=== PATIENT | female | born 1980 | race Caucasian/White ===

== ENCOUNTER 2016-07-13 16:27 | Emergency (ER) | payer MEDICAID ==
[2016-07-13 17:44] LABS: BASOPHILS 0.6 % (0.0-2.0); EOSINOPHILS 0.8 % (0-7); HEMATOCRIT 36.4 % (36.0-48.0); HEMOGLOBIN 12.3 g/dL (12-16); IMMATURE GRANULOCYTES 0.2 % (0-5); LYMPHOCYTES 18.1 % (15-50); MCH 35.2 pg (26.0-34.0); MCHC 33.8 g/dL (31.0-37.0); MCV 104.3 fL (80.0-100.0); MEAN PLATELET VOLUME 10.9 fL (7.4-10.4); MONOCYTES 11.8 % (2-11); NEUTROPHILS 68.5 % (40-80); RBC 3.49 10x6/uL (4.00-5.40); RDW 14.4 % (11.5-14.5)
[2016-07-13 17:46] LABS: PLATELET COUNT 115 10x3/uL (130-400)
[2016-07-13 17:59] LABS: ALBUMIN 4.1 g/dL (3.4-5.0); ALKALINE PHOSPHATASE 82 U/L (46-116); ALT (SGPT) 109 U/L (10-68); BILIRUBIN - TOTAL 1.09 mg/dL (0.2-1.3); CALC OSMOLALITY 267 mosm/kg (275-300); CALCIUM 9.3 mg/dL (8.5-10.1); CARBON DIOXIDE 29.1 mmol/L (21.0-32.0); CHLORIDE - SERUM 97 mmol/L (98-107); CREATININE - SERUM 0.7 mg/dL (0.6-1.3); GLUCOSE 105 mg/dL (74-106); POTASSIUM - SERUM 4.1 mmol/L (3.5-5.1); PROTEIN - SERUM 7.9 g/dL (6.4-8.2); SODIUM 135 mmol/L (136-145); UREA NITROGEN 6 mg/dL (7-18); eGFR NON AFRICAN AMERICAN > 90 mL/min (90-120)
== END 2016-07-13 19:21 | disposition home or self-care (01) ==
LOC: D.ER 16:27
PROVIDERS: Family Medicine
DX: R55 Syncope and collapse (principal); F17.200 Nicotine dependence, unspecified, uncomplicated

== ENCOUNTER 2018-01-05 09:27 | Emergency (ER) | payer MEDICAID ==
[~2018-01-05] VITALS: Ht 160 cm; Wt 77.3 kg
[2018-01-05 09:33] VITALS: BP 117/76; Ht 160 cm; Wt 77.3 kg
[2018-01-05] MEDS ORDERED: NAPROSYN500 MG PO (11:20)
== END 2018-01-05 11:41 | disposition home or self-care (01) ==
LOC: D.ER 09:27
DX: S20.211A Contusion of right front wall of thorax, initial encounter (principal); X58.XXXA Exposure to other specified factors, initial encounter; Y93.89 Activity, other specified; Y92.019 Unspecified place in single-family (private) house as the place of occurrence of the external cause; F17.200 Nicotine dependence, unspecified, uncomplicated

== ENCOUNTER 2018-11-12 15:52 | Emergency (ER) | payer MEDICAID ==
[~2018-11-12 15:52] MED LIST: NAPROSYN500 MG PO
[2018-11-12 15:58] VITALS: Ht 160 cm
[2018-11-12] MEDS ORDERED: ULTRAM50 MG PO (16:43)
[2018-11-12 17:07] VITALS: BP 124/68
== END 2018-11-12 17:08 | disposition home or self-care (01) ==
LOC: D.ER 15:52
DX: S82.832A Other fracture of upper and lower end of left fibula, initial encounter for closed fracture (principal); W06.XXXA Fall from bed, initial encounter; Y93.89 Activity, other specified; Y92.013 Bedroom of single-family (private) house as the place of occurrence of the external cause

== ENCOUNTER 2018-12-04 11:27 | Day surgery (SDC) | payer MEDICAID ==
[~2018-12-04] VITALS: Ht 160 cm; Wt 72.6 kg
[~2018-12-04 11:27] MED LIST changes: +HYDROCODON-ACE1 EA10 PO; +ULTRAM50 MG PO
[2018-12-04 11:54] LABS: HEMATOCRIT 45.2 % (36.0-48.0); HEMOGLOBIN 16.6 g/dL (12-16); MCH 39.6 pg (26.0-34.0); MCHC 36.7 g/dL (31.0-37.0); MCV 107.9 fL (80.0-100.0); MEAN PLATELET VOLUME 10.2 fL (7.4-10.4); RBC 4.19 10x6/uL (4.00-5.40); RDW 13.6 % (11.5-14.5); WBC 9.1 10x3/uL (4.8-10.8)
[2018-12-04 12:27] VITALS: BP 123/104; Ht 160 cm; Wt 72.6 kg
[2018-12-04 12:38] LABS: HCG URINE NEGATIVE (NEGATIVE)
[2018-12-04] MEDS ORDERED: HYDROCODON-ACE1 EA10 PO (16:01)
--- NOTE | 2018-12-12 14:40 | OP ---
PATIENT NAME: LUANNE HANEY MEDICAL RECORD: [id number] :76 LOCATION:[facility] ADMISSION DATE: SURGEON: ISA LINDSEY MD DATE OF OPERATION: 12/04/2018 PREOPERATIVE DIAGNOSIS: Left fibula fracture. POSTOPERATIVE DIAGNOSIS: Left fibula fracture. PROCEDURE: Open reduction internal fixation of left fibula fracture. SURGEON: Isa Lindsey MD CAREER SERVICES MANAGER: CLEVELAND Dalton INTRAOPERATIVE COMPLICATIONS: None. SUMMARY OF PATHOLOGIC FINDINGS: The patient had a very easily reducible fibular fracture that did have interposed fracture hematoma as well as scar tissue that required takedown; however, after reduction, it was nicely fixed under fluoroscopy. OPERATIVE SUMMARY IN DETAIL: After obtaining the appropriate preoperative orthopedic surgery consent as well as anesthetic consultation, evaluation and clearance, the patient was brought to the operating room and placed on the operating table in supine position. After adequate general laryngeal mask airway was administered, tourniquet was placed about the proximal aspect of the left lower extremity. Left lower extremity was then prepped and draped in routine sterile fashion. At this point, appropriate timeout was taken including patient identifiers, appropriate operative site as well as medications and allergies. This was agreed upon by all in the operative suite. Having completed this, the leg was elevated and exsanguinated, tourniquet was inflated to 350 mmHg. Under fluoroscopic guidance, incision was made over the fracture taken down to the level of periosteum. Fracture hematoma was then removed using a small curette and lavaged. Fracture was then reduced and provisionally pinned with an 0.062 K-wire. At this point, the plate was affixed under fluoroscopic guidance and then a combination of both locking and nonlocking screws were used to fix the patient's fibular fracture. Final radiographs were submitted AP, lateral and oblique planes for radiologist review. Wounds were then irrigated and closed using combination of #1 Vicryl, 2-0 Vicryl and skin jill by Blake Summers. Having completed this, sterile dressings were applied. Tourniquet was deflated and a posterior L&U splint was applied. The patient was then awakened, taken to recovery room in stable condition. All final needle and sponge counts were correct. TRANSINT:[id number] Voice Confirmation ID: [id number] DOCUMENT ID: [id number] OPERATIVE REPORT [id number] LUANNE HANEY MD, ISA ESTEVEZ at 1440 CC: [id number] DICTATION DATE: 12/12/18814 DEFENSIVE SECONDARY COACH: 12/12/18923 [facility] 12/04/18 [place] [id number] [place] [id number]
== END 2018-12-04 19:20 | disposition home or self-care (01) ==
LOC: D.OPS 11:27 → D.PAN 13:00 → D.OPS 13:00
PROVIDERS: Anesthesiology; ATTEND Orthopaedic Surgery
DX: S82.62XA Displaced fracture of lateral malleolus of left fibula, initial encounter for closed fracture (principal); Z01.812 Encounter for preprocedural laboratory examination

== ENCOUNTER 2020-02-19 07:38 | Emergency (ER) | payer OTHER ==
[~2020-02-19] VITALS: Ht 160 cm; Wt 59.1 kg
[2020-02-19 07:43] VITALS: BP 127/83; Ht 160 cm; Wt 59.1 kg
[2020-02-19] MEDS ORDERED: HYDROCODON-ACE1 EAC7 PO (08:37)
== END 2020-02-19 08:56 | disposition home or self-care (01) ==
LOC: D.ER 07:38
DX: T81.89XA Other complications of procedures, not elsewhere classified, initial encounter (principal)

== ENCOUNTER 2020-07-07 14:15 | Inpatient (IN) | payer OTHER ==
[~2020-07-07] VITALS: Ht 160 cm; Wt 63.1 kg
[~2020-07-07 14:15] MED LIST changes: +BACTRIM DS TAB1 EAC1 PO; +HYDROCODON-ACE1 EAC7 PO; +IBUPROFEN400 MG PO
[2020-07-07 14:58] LABS: BASOPHILS 0.1 % (0-2); EOSINOPHILS 0.1 % (0-7); HEMOGLOBIN 9.6 g/dL (12-16); LYMPHOCYTES 6.7 % (15-50); MCH 39.5 pg (26.0-34.0); MCHC 35.6 g/dL (31.0-37.0); MCV 111.1 fL (80.0-100.0); MEAN PLATELET VOLUME 10.9 fL (7.4-10.4); NEUTROPHIL ABS# 12.94 10x3/uL (1.56-6.13); NEUTROPHILS 87.1 % (40-80); PLATELET COUNT 326 10x3/uL (130-400); RBC 2.43 10x6/uL (4.00-5.40); RDW 17.6 % (11.5-14.5); WBC 14.9 10x3/uL (4.8-10.8)
[2020-07-07 15:12] LABS: ALBUMIN 2.5 g/dL (3.4-5.0); BILIRUBIN - TOTAL 6.97 mg/dL (0.2-1.3); CALCIUM 8.1 mg/dL (8.5-10.1); CARBON DIOXIDE 20.5 mmol/L (21.0-32.0); CREATININE - SERUM 2.2 mg/dL (0.6-1.3); PROTEIN - SERUM 7.4 g/dL (6.4-8.2)
[2020-07-07 15:15] LABS: ANION GAP 20.9 mmol/L (8-16)
[2020-07-07 15:17] LABS: POTASSIUM - SERUM 2.4 mmol/L (3.5-5.1)
[2020-07-07 15:30] LABS: HCG SERUM NEGATIVE (NEGATIVE)
[2020-07-07 15:33] LABS: AMYLASE - SERUM 6 U/L (25-115)
[2020-07-07 15:34] LABS: LIPASE 22 U/L (73-393)
--- NOTE | 2020-07-07 19:10 | NUR ---
PATIENT PLACED ON BEDPAN.
[2020-07-07 20:32] LABS: BILIRUBIN NEGATIVE (NEGATIVE); KETONE NEGATIVE (NEGATIVE); NITRITE NEGATIVE (NEGATIVE); UROBILINOGEN NORMAL mg/dL (< 2)
[2020-07-07 20:33] LABS: BACTERIA MANY HPF (NONE SEEN); SQUAMOUS EPITHELIAL 0-5 HPF (0-4); WHITE CELLS - URINE 0-5 HPF (0-4)
--- NOTE | 2020-07-08 02:10 | NUR ---
PATIENT TO ROOM 2236 PER STRETCHER FROM ER ACCOMPANIED BY ER STAFF AT APPROX 0145. PATIENT IS ALERT AND ORIENTED X 4. LR AT 100 INFUSING VIA PUMP. ORIENTED TO ROOM AND UNIT. CALL LIGHT IN EASY REACH.
[2020-07-08 02:40] VITALS: BP 90/60
[2020-07-08 04:00] VITALS: BP 90/45
[2020-07-08 09:28] VITALS: BP 97/50
[2020-07-08 11:01] LABS: HEMATOCRIT 23.8 % (36.0-48.0); HEMOGLOBIN 8.2 g/dL (12-16); LYMPHOCYTES 10.3 % (15-50); MCH 41.8 pg (26.0-34.0); MCHC 34.5 g/dL (31.0-37.0); MEAN PLATELET VOLUME 10.8 fL (7.4-10.4); NEUTROPHILS 86.1 % (40-80); WBC 11.2 10x3/uL (4.8-10.8)
[2020-07-08 11:03] LABS: MCV 121.4 fL (80.0-100.0); PLATELET COUNT 221 10x3/uL (130-400)
[2020-07-08 11:06] LABS: INR 2.22 (0.85-1.17); PROTIME 22.9 SECONDS (11.6-15.0)
[2020-07-08 11:08] LABS: BILIRUBIN - DIRECT 3.74 mg/dL (0.00-0.30); BILIRUBIN - INDIRECT 1.4 mg/dL (0.00-1.00); BILIRUBIN - TOTAL 5.14 mg/dL (0.2-1.3); CALCIUM 7.4 mg/dL (8.5-10.1); CARBON DIOXIDE 19.2 mmol/L (21.0-32.0); MAGNESIUM - SERUM 1.2 mg/dL (1.8-2.4); PHOSPHOROUS 2.1 mg/dL (2.5-4.9); PROTEIN - SERUM 5.6 g/dL (6.4-8.2)
[2020-07-08 11:10] LABS: ALBUMIN 1.8 g/dL (3.4-5.0)
[2020-07-08 11:11] LABS: ANION GAP 16.7 mmol/L (8-16)
[2020-07-08 11:12] LABS: POTASSIUM - SERUM 2.9 mmol/L (3.5-5.1); RBC 1.96 10x6/uL (4.00-5.40)
[2020-07-08 12:26] VITALS: BMI 23.0
[2020-07-08 12:37] VITALS: BP 87/52
[2020-07-08 15:54] LABS: RETIC 1.44 % (0.45-2.28)
[2020-07-08 16:04] LABS: BILIRUBIN - DIRECT 3.97 mg/dL (0.00-0.30); BILIRUBIN - TOTAL 5.24 mg/dL (0.2-1.3)
[2020-07-08 17:27] VITALS: BP 91/62
[2020-07-08 20:00] VITALS: BP 95/52
[2020-07-08 21:04] LABS: FERRITIN 848 ng/mL (3-244); LDH 174 U/L (81-234)
[2020-07-08 22:45] LABS: % SATURATION 128 % (15-55); IRON 73 ug/dl (35-150); TOTAL IRON BIND CAPACITY 57 ug/dl (260-445)
[2020-07-08 22:48] LABS: UNSAT IRON BIND CAPACITY < 55 ug/dl (150-375)
--- NOTE | 2020-07-09 02:29 | NUR ---
AWAKE MOST OF THIS SHIFT. NO COMPLAINTS OF PAIN OR DISCOMFORT VOICED. NO NAUSEA OR VOMITING NOTED. PATIENT IS AWARE THAT SHE IS TO HAVE NOTHING BY MOUTH OR PAIN MEDICATIONS AFTER MIDNIGHT. TELEMETRY SHOWS SINUS RHYTHM. ENCOURAGED TO CALL FOR ASSISTANCE NEEDED. CALL LIGHT IN EASY REACH. SAFETY ROUNDS MADE.
[2020-07-09 04:00] VITALS: BP 101/53
[2020-07-09 06:51] LABS: INR 2.44 (0.85-1.17); PROTIME 24.6 SECONDS (11.6-15.0)
[2020-07-09 07:06] LABS: ALBUMIN 1.8 g/dL (3.4-5.0); BILIRUBIN - TOTAL 4.39 mg/dL (0.2-1.3); CALCIUM 7.7 mg/dL (8.5-10.1); CARBON DIOXIDE 22.8 mmol/L (21.0-32.0); CREATININE - SERUM 1.9 mg/dL (0.6-1.3); MAGNESIUM - SERUM 1.5 mg/dL (1.8-2.4); PROTEIN - SERUM 5.3 g/dL (6.4-8.2)
[2020-07-09 07:19] LABS: BASOPHILS 0.1 % (0-2); EOSINOPHILS 1.6 % (0-7); IMMATURE GRANULOCYTES 2.9 % (0-5); LYMPHOCYTE ABS# 1.24 10x3/uL (1.18-3.74); LYMPHOCYTES 10.1 % (15-50); MCH 38.4 pg (26.0-34.0); MCHC 34.7 g/dL (31.0-37.0); MEAN PLATELET VOLUME 10.7 fL (7.4-10.4); MONOCYTES 4.9 % (2-11); NEUTROPHIL ABS# 9.92 10x3/uL (1.56-6.13); NEUTROPHILS 80.4 % (40-80); PLATELET COUNT 235 10x3/uL (130-400); RDW 17.8 % (11.5-14.5); WBC 12.3 10x3/uL (4.8-10.8)
[2020-07-09 07:25] LABS: HEMOGLOBIN 6.6 g/dL (12-16); MCV 110.5 fL (80.0-100.0); RBC 1.72 10x6/uL (4.00-5.40)
--- NOTE | 2020-07-09 07:25 | NUR ---
NURSE CALLS CRITICAL LAB TO DR HAYDEN'S OFFICE ANSWERING SERVICE, RBC, HEMOGLOBIN AND HEMATACRIT.
[2020-07-09 07:26] LABS: PHOSPHOROUS 2.9 mg/dL (2.5-4.9); POTASSIUM - SERUM 3.8 mmol/L (3.5-5.1)
--- NOTE | 2020-07-09 08:19 | NUR ---
NURSE OBTAINS CONSENT FOR BLOOD TRANSFUSION.
[2020-07-09 08:26] VITALS: BP 99/57
--- NOTE | 2020-07-09 08:30 | NUR ---
NURSE GIVES PATIENT PO MEDS AT THIS TIME AND SETS BREAKFAST TRAY UP FOR PATIENT AND ADJUSTS HER BED. PATIENT DENIES PAIN OR NEEDS.
[2020-07-09 10:12] LABS: HEPATITIS C ANTIBODY <0.1 S/CO RAT (0.0-0.9)
--- NOTE | 2020-07-09 10:47 | NUR ---
PATIENT LEAVES FOR PIPIDA SCAN
--- NOTE | 2020-07-09 16:39 | NUR ---
PATIENT JUST GOT BACK FROM SCAN. NURSE TO RESTART PATIENT'S FLUIDS
--- NOTE | 2020-07-09 19:40 | NUR ---
RECEIVED IN REPORT THAT SOLUMEDROL WAS RECENTLY STARTED. TUBING IS CLAMPING AND NONE HAS INFUSED, RESTARTED AT THIS TIME.
[2020-07-09 20:00] VITALS: BP 93/46
--- NOTE | 2020-07-09 22:49 | NUR ---
I have reviewed this patient and I concur with the Shift Assessment completed by the Licensed Practical Nurse today this shift.
--- NOTE | 2020-07-09 23:15 | NUR ---
BLOOD VERIFIED AND STARTED BY KAY STOREY. NO IMMEDIATE S/SX OF DISTRESS, VS STABLE, CTM.
[2020-07-10 07:45] LABS: ALBUMIN 2.1 g/dL (3.4-5.0); ANION GAP 13.8 mmol/L (8-16); BILIRUBIN - TOTAL 5.92 mg/dL (0.2-1.3); CALCIUM 8.2 mg/dL (8.5-10.1); CARBON DIOXIDE 20.3 mmol/L (21.0-32.0); CREATININE - SERUM 1.5 mg/dL (0.6-1.3); MAGNESIUM - SERUM 1.8 mg/dL (1.8-2.4); POTASSIUM - SERUM 4.1 mmol/L (3.5-5.1); PROTEIN - SERUM 6.1 g/dL (6.4-8.2)
[2020-07-10 08:20] LABS: BASOPHILS 0.1 % (0-2); EOSINOPHILS 0 % (0-7); IMMATURE GRANULOCYTES 1.6 % (0-5); LYMPHOCYTE ABS# 0.55 10x3/uL (1.18-3.74); MCH 34.3 pg (26.0-34.0); MCHC 34.9 g/dL (31.0-37.0); MEAN PLATELET VOLUME 10.5 fL (7.4-10.4); MONOCYTES 1.1 % (2-11); NEUTROPHILS 92.2 % (40-80); RDW 23.7 % (11.5-14.5)
[2020-07-10 08:21] LABS: HEMATOCRIT 28.1 % (36.0-48.0); HEMOGLOBIN 9.8 g/dL (12-16); RBC 2.86 10x6/uL (4.00-5.40)
[2020-07-10 08:22] LABS: MCV 98.3 fL (80.0-100.0); PLATELET COUNT 179 10x3/uL (130-400)
[2020-07-10 08:37] VITALS: BP 101/60
[2020-07-10 09:13] LABS: ANA REFLEX - DIRECT Negative (Negative)
--- NOTE | 2020-07-10 13:56 | NUR ---
Nutrition follow-up: Diet order downgraded to clear liquids due to continued diarrhea Pt with decreased gallbladder function per PIPPIDA scan Labs reviewed Wt: 123# Multiple BMs charted Recommendations: Start ProcalAmine PPN @ 75 ml/hr due to pt not meeting estimated nutritional needs at this time. RDN follow-up: 07/14/20
[2020-07-10 18:27] VITALS: BP 90/62
[2020-07-10 20:00] VITALS: BP 112/71
[2020-07-11 04:00] VITALS: BP 110/74
[2020-07-11 06:27] LABS: BASOPHILS 0.1 % (0-2); EOSINOPHILS 0 % (0-7); HEMATOCRIT 28.6 % (36.0-48.0); IMMATURE GRANULOCYTES 2.3 % (0-5); LYMPHOCYTE ABS# 1.01 10x3/uL (1.18-3.74); LYMPHOCYTES 6.1 % (15-50); MCH 33.9 pg (26.0-34.0); MCV 96.9 fL (80.0-100.0); MEAN PLATELET VOLUME 10.7 fL (7.4-10.4); MONOCYTES 5.1 % (2-11); NEUTROPHILS 86.4 % (40-80); PLATELET COUNT 176 10x3/uL (130-400); RBC 2.95 10x6/uL (4.00-5.40); RDW 25.2 % (11.5-14.5)
[2020-07-11 06:28] LABS: WBC 16.5 10x3/uL (4.8-10.8)
[2020-07-11 07:22] LABS: ALBUMIN 2.2 g/dL (3.4-5.0); ANION GAP 15.5 mmol/L (8-16); BILIRUBIN - TOTAL 4.98 mg/dL (0.2-1.3); CALCIUM 8.1 mg/dL (8.5-10.1); CARBON DIOXIDE 22.1 mmol/L (21.0-32.0); CREATININE - SERUM 1.3 mg/dL (0.6-1.3); MAGNESIUM - SERUM 2.1 mg/dL (1.8-2.4); POTASSIUM - SERUM 3.6 mmol/L (3.5-5.1); PROTEIN - SERUM 6.2 g/dL (6.4-8.2)
--- NOTE | 2020-07-11 07:48 | NUR ---
REC'D IN ROOM AWAKE AND ALERT. RESP EVEN AND UNLABORED WITH NO DISTRESS NOTED. CAN EXPRESS NEEDS AND WANTS. NO C/O NOTED OR VOICED AT THIS TIME. ASSESSMENT COMPLETED. C/L IN REACH AT BEDSIDE.
[2020-07-11 08:30] LABS: HCG SERUM NEGATIVE (NEGATIVE)
[2020-07-11 08:37] VITALS: BP 108/73
--- NOTE | 2020-07-11 10:42 | NUR ---
I have reviewed this patient and I concur with the Shift Assessment completed by the Licensed Practical Nurse today this shift.
[2020-07-11 11:12] LABS: ERYTHROCYTE SEDIMENTATION RATE 35 mm/hr (0-20)
[2020-07-11 12:19] VITALS: BP 107/65
[2020-07-11 16:45] VITALS: BP 111/65
[2020-07-11 20:16] VITALS: BP 107/67
[2020-07-12 00:38] VITALS: BP 95/53
--- NOTE | 2020-07-12 01:01 | NUR ---
PT SITTING ON THE SIDE OF THE BED. SCDS ON. ALERT AND ORIENTED. NO PAIN OR DISTRESS NOTED AT THIS TIME. BED IN LOW POSITION WITH CALL BRISCOE LIGHT IN REACH.
[2020-07-12 04:57] VITALS: BP 103/68
[2020-07-12 07:53] VITALS: BP 104/70
--- NOTE | 2020-07-12 09:32 | NUR ---
AAOX4 UPON ENTERING. ADMINISTERED MORNING MEDICATIONS, TOLERATED WELL. INQUIRING ABOUT PAIN MEDICAITON, WILL LOOK INTO IT. DENIES ANY OTHER NEEDS AT THIS TIME. BED IN LOWEST POSITION, BED RAILS X2, CALL LIGHT WITHIN REACH. WILL CONTINUE POC.
--- NOTE | 2020-07-12 11:17 | NUR ---
AROUSES TO VOICE. PRN MORPHINE FOR PAIN IN LOWER ABDOMEN. TOLERATED WELL. PROVIDED TOLETRIES. DENIES ANY OTHER NEEDS AT THIS TIME. BED IN LOWEST POSITIOHN, BED RAILS X2, CALL LIGHT WITHIN REACH. WILL CONTINUE POC.
--- NOTE | 2020-07-12 11:39 | NUR ---
I have reviewed this patient and I concur with the Shift Assessment completed by the Licensed Practical Nurse today this shift.
[2020-07-12 12:14] VITALS: BP 107/66
[2020-07-12 15:51] VITALS: BP 105/69
--- NOTE | 2020-07-12 15:51 | NUR ---
ADMINISTERED PRN MORPHINE FOR PAIN RADIATING TO BACK. TOLERATED WELL. RESTING COMFORTABLY IN BED. WILL CONTINUE POC.
--- NOTE | 2020-07-12 17:21 | NUR ---
ADMINISTERED MEDICATION, TOLERATED WELL. IV ABX HUNG. FAMILY AT BEDSIDE. UP RIGHT EATING DINNER. DENIES ANY NEEDS AT THIS TIME. WILL CONTINUE POC.
[2020-07-12 18:08] LABS: MITOCHONDRIAL ANTIBODY <20.0 Units (0.0-20.0); SMOOTH MUSCLE ABS (ACTIN) 7 Units (0-19)
--- NOTE | 2020-07-12 18:15 | NUR ---
RESTING COMFORTABLY, IV FOLIC ACID HUNG. DENIES ANY NEEDS AT THIS TIME.
--- NOTE | 2020-07-12 19:14 | NUR ---
PATIENT SITTING UP IN BED GOING TO RESTROOM. PATIENT STEADY TO WALK TO AND FROM RESTROOM AND DENIES OTHER NEEDS AT THIS TIME. BED IN LOWEST POSITION AND CALL LIGHT IN REACH. ENCOURAGED PATIENT TO CALL WITH NEEDS.
[2020-07-12 20:02] VITALS: BP 102/68
--- NOTE | 2020-07-12 20:09 | NUR ---
ADMINISTERED MEDS PER ORDERS. PATIENT DENISE WELL. ENCOURAGED TO CALL WITH NEEDS.
--- NOTE | 2020-07-12 22:56 | NUR ---
PATIENT ACCIDENTALLY PULLED PIV OUT. TIP INTACT. RESITED WITH A 22G ON THE FIRST ATTEMPT TO THE LEFT FA.
[2020-07-13 04:52] VITALS: BP 123/82
[2020-07-13 07:28] LABS: BASOPHILS 0.1 % (0-2); EOSINOPHILS 0 % (0-7); HEMATOCRIT 27.4 % (36.0-48.0); HEMOGLOBIN 9.5 g/dL (12-16); IMMATURE GRANULOCYTES 6.8 % (0-5); LYMPHOCYTE ABS# 0.82 10x3/uL (1.18-3.74); LYMPHOCYTES 8.3 % (15-50); MCH 33.7 pg (26.0-34.0); MCHC 34.7 g/dL (31.0-37.0); MCV 97.2 fL (80.0-100.0); MEAN PLATELET VOLUME 9.9 fL (7.4-10.4); MONOCYTES 7.7 % (2-11); NEUTROPHIL ABS# 7.64 10x3/uL (1.56-6.13); NEUTROPHILS 77.1 % (40-80); RBC 2.82 10x6/uL (4.00-5.40); RDW 24.8 % (11.5-14.5)
[2020-07-13 07:31] LABS: PLATELET COUNT 111 10x3/uL (130-400); WBC 9.9 10x3/uL (4.8-10.8)
[2020-07-13 08:15] LABS: ALBUMIN 1.9 g/dL (3.4-5.0); ANION GAP 12.4 mmol/L (8-16); BILIRUBIN - TOTAL 2.96 mg/dL (0.2-1.3); CALCIUM 7.5 mg/dL (8.5-10.1); CARBON DIOXIDE 20.9 mmol/L (21.0-32.0); CREATININE - SERUM 1.3 mg/dL (0.6-1.3); MAGNESIUM - SERUM 1.7 mg/dL (1.8-2.4); POTASSIUM - SERUM 3.3 mmol/L (3.5-5.1)
--- NOTE | 2020-07-13 09:09 | NUR ---
ALERT AND ORIENTED. ASSESSMENT COMPLETE. DENIES NEEDS. BED LOW. CALL BRISCOE AND PERSONAL ITEMS INREACH. WILL CONTINUE TO MONITOR.
[2020-07-13 09:33] VITALS: BP 129/72
--- NOTE | 2020-07-13 12:08 | NUR ---
SITTING ON SIDE OF BED EATING LUNCH. DENIES NEEDS.
[2020-07-13 12:23] VITALS: BP 104/69
[2020-07-13 16:00] VITALS: BP 110/72
[2020-07-13 19:44] VITALS: BP 120/82
--- NOTE | 2020-07-14 03:24 | NUR ---
PATIENT REPORTS SEVERE ANXIETY. MEDICATED PER MAR. DENIES PAIN AT THIS TIME. CONTINUES TO HAVE DIARRHEA. WILL CONTINUE TO MONITOR.
[2020-07-14 05:18] LABS: BASOPHILS 0 % (0-2); EOSINOPHILS 0 % (0-7); HEMATOCRIT 25.2 % (36.0-48.0); HEMOGLOBIN 8.7 g/dL (12-16); IMMATURE GRANULOCYTES 1.7 % (0-5); LYMPHOCYTE ABS# 1.51 10x3/uL (1.18-3.74); LYMPHOCYTES 11.3 % (15-50); MCH 33.6 pg (26.0-34.0); MCHC 34.5 g/dL (31.0-37.0); MCV 97.3 fL (80.0-100.0); MEAN PLATELET VOLUME 9.6 fL (7.4-10.4); MONOCYTES 1.9 % (2-11); NEUTROPHIL ABS# 11.35 10x3/uL (1.56-6.13); NEUTROPHILS 85.1 % (40-80); RBC 2.59 10x6/uL (4.00-5.40); RDW 24.7 % (11.5-14.5)
[2020-07-14 05:22] LABS: PLATELET COUNT 85 10x3/uL (130-400); PLATELET ESTIMATE DECREASED; WBC 13.3 10x3/uL (4.8-10.8)
[2020-07-14 05:36] LABS: ALBUMIN 1.6 g/dL (3.4-5.0); ANION GAP 11.3 mmol/L (8-16); BILIRUBIN - TOTAL 2.72 mg/dL (0.2-1.3); CALCIUM 7.3 mg/dL (8.5-10.1); CARBON DIOXIDE 19.2 mmol/L (21.0-32.0); CREATININE - SERUM 1.1 mg/dL (0.6-1.3); MAGNESIUM - SERUM 1.7 mg/dL (1.8-2.4); POTASSIUM - SERUM 3.5 mmol/L (3.5-5.1); PROTEIN - SERUM 4.6 g/dL (6.4-8.2)
--- NOTE | 2020-07-14 08:15 | NUR ---
PT RESTING QUIETLY IN BED. PT REQUEST ATIVAN FOR ANXIETY. ATIVAN ADMINISTERED PER REQUEST AND MD ORDERS AT THIS TIME. DENIES PAIN AT THIS TIME. IV TO LEFT FOREARM WITH NS @ 100ML/HR INFUSING VIA PUMP. SITE WITHOUT REDNESS OR EDEMA. DENIES FURTHER NEEDS AT THIS TIME. CL WITHIN REACH. ENCOURAGED TO CALL WITH NEEDS. CONTINUE POC
[2020-07-14 08:36] VITALS: BP 102/69
[2020-07-14 10:05] LABS: APTT 37.8 SECONDS (22.8-39.4)
[2020-07-14 12:26] VITALS: BP 108/69
--- NOTE | 2020-07-14 14:15 | NUR ---
Nutrition Re-Assessment Diet: Regular PO intake: ~46% average x last 6 meals Last BM: 07/12/20 Wt: 122.3# (07/10/20) Meds noted: solumedrol, NS@125, probiotics, abx Labs noted: Na 132(L), Glu 112(H), Mag 1.7(L) Estimated nutrition needs remain unchanged from initial nutrition assessment at this time. Nutrition diagnosis: Inadequate energy intake r/t inadequate oral intake AEB PO intake <50% average x last 6 meals. Goals: -Diet will advance - goal met -Will meet at least 75% of estimated fluid needs - progressing -Stable dry weight - unable to assess at this time Interventions: -Will continue to honor food preferences within diet restrictions. Recommendations: -Continue current diet. RD will follow-up 07/18/20
--- NOTE | 2020-07-14 16:23 | MORECARE ---
CASE MANAGEMENT DISCHARGE SUMMARY PATIENT: LUANNE HANEY UNIT: [id number] ADM DATE: 07/08/20 AGE: 40 : 78 SEX: F ROOM/BED: D.2236 AUTHOR: NASH LAFLEUR PHYSICIAN: REFERRING PHYSICIAN: MAGDI HAYDEN MD DATE OF SERVICE: 07/14/20 Discharge Plan Patient Name: LUANNE HANEY Facility: [facility]:[place] : 1980 Planned Disposition: Anticipated Discharge Date: Discharge Date: Expected LOS: Initial Reviewer: [email or web address] Initial Review Date: 07/08/2020 Generated: 07/14/20 5:22 pm Comments DCP- Discharge Planning Updated by [email or web address]: Kelly Mcgrath on 07/14/20 2:[address] Patient Name: LUANNE HANEY Admission Status: ER Accout number: [id number] Admission Date: 07-08-2020 : 1980 Admission Diagnosis:NONINFECTIVE GASTROENTERITIS AND COLITIS, UNSPECIFIED Attending: MAGDI HAYDEN Current LOS: 6 Anticipated DC Date: Planned Disposition: Primary Insurance: [facility] MANAGED MEDICAID Discharge Planning Comments: CM met with patient at bedside after obtaining verbal consent. CM discussed availability / needs of home health, REHAB and medical equipment. Patient denies any discharge needs. States plans to dc to home with after biopsy is resulted. CM to follow and assist as needed. Signal Maintainer Helper: Kelly Mcgrath DCPIA - Discharge Planning Initial Assessment Updated by [email or web address]: Kelly Mcgrath on 07/14/20 4:19 pm * Is the patient Alert and Oriented? Yes * PCP NONE * Pharmacy [facility] * Preadmission Environment Home with Family * ADLs Independent * Equipment None * Community resources currently utilized None * Additional services required to return to the preadmission environment? No * Can the patient safely return to the preadmission environment? Yes * Has this patient been hospitalized within the prior 30 days at any hospital? No Patient Name: LUANNE HANEY Page [phone] at 1623 All edits/amendments must be made on the electronic document DICTATION DATE: 03/15/21 1622 PER DIEM RN: DM 07/14/201621 RPT#: [id number] DC DATE: STATUS: ADM IN [facility] [address] [place] [address] END OF REPORT
[2020-07-14 17:00] VITALS: BP 103/69
[2020-07-14 20:00] VITALS: BP 118/71
[2020-07-15] VITALS: BP 118/70
[2020-07-15 04:00] VITALS: BP 180/60
[2020-07-15 06:20] LABS: BASOPHILS 0.1 % (0-2); EOSINOPHILS 0.1 % (0-7); HEMATOCRIT 28.3 % (36.0-48.0); HEMOGLOBIN 9.8 g/dL (12-16); IMMATURE GRANULOCYTES 2.3 % (0-5); LYMPHOCYTE ABS# 1.87 10x3/uL (1.18-3.74); LYMPHOCYTES 8.5 % (15-50); MCH 34.3 pg (26.0-34.0); MCHC 34.6 g/dL (31.0-37.0); MEAN PLATELET VOLUME 10.1 fL (7.4-10.4); MONOCYTES 5.3 % (2-11); NEUTROPHIL ABS# 18.45 10x3/uL (1.56-6.13); NEUTROPHILS 83.7 % (40-80); PLATELET COUNT 84 10x3/uL (130-400); RBC 2.86 10x6/uL (4.00-5.40)
[2020-07-15 06:36] LABS: ALBUMIN 1.9 g/dL (3.4-5.0); ANION GAP 14.6 mmol/L (8-16); BILIRUBIN - TOTAL 3.12 mg/dL (0.2-1.3); CALCIUM 7.5 mg/dL (8.5-10.1); CARBON DIOXIDE 17.2 mmol/L (21.0-32.0); CREATININE - SERUM 0.9 mg/dL (0.6-1.3); POTASSIUM - SERUM 3.8 mmol/L (3.5-5.1); PROTEIN - SERUM 4.8 g/dL (6.4-8.2)
--- NOTE | 2020-07-15 07:06 | NUR ---
pt slept well throughout the night. no complaints of pain until this morning around 6am. stating that she is just ready to go home and not understanding why she is still here. bed in lowest position. call light in reach.
--- NOTE | 2020-07-15 07:15 | NUR ---
REC'D IN BED AWAKE AND ALERT. RESP EVEN AND UNLABORED WITH NO DISTRESS NOTED. CAN EXPRESS NEEDS AND WANTS. NO C/O NOTED OR VOICED. ASSESSMENT COMPLETED AT THIS TIME. C/L IN REACH AT BEDSIDE.
[2020-07-15 08:26] VITALS: BP 104/53
[2020-07-15 10:10] LABS: INR 2.09 (0.85-1.17); PROTIME 21.8 SECONDS (11.6-15.0)
[2020-07-15 12:43] VITALS: BP 99/63
--- NOTE | 2020-07-15 15:00 | NUR ---
OT NOTE: PT PERFORMED BED MOB WITH SBA; EOB SITTING WITH GOOD BALANCE; ABLE TO NELSON SOCKS WHILE LONG SITTING IN BED; TRANSFER TO CHAIR WITH WALKER AND MIN ASSIST; MOD ASSIST WITH TOILETING; SET UP/MIN ASSIST WITH GROOMING. LAZARO FRAGOSO, OTR/L [phone]
[2020-07-15 17:48] VITALS: BP 109/63
[2020-07-15 20:00] VITALS: BP 102/72
--- NOTE | 2020-07-15 21:19 | NUR ---
PT WAS SITTING IN CHAIR ON ROUND. HAD NO COMPLAINTS OF PAIN NOR DISTRESS AT THIS TIME. NO NEEDS AT THIS TIME. REINFORMED ABOUT BEING NPO AT MIDNIGHT AND PATIENT VOICED UNDERSTANDING. CALL LIGHT IN REACH
[2020-07-16] VITALS: BP 108/65
[2020-07-16 04:00] VITALS: BP 105/64
[2020-07-16 06:14] LABS: APTT 25.8 SECONDS (22.8-39.4)
[2020-07-16 06:15] LABS: INR 1.99 (0.85-1.17); PROTIME 20.9 SECONDS (11.6-15.0)
[2020-07-16 06:23] LABS: BASOPHILS 0.1 % (0-2); EOSINOPHILS 0.1 % (0-7); HEMOGLOBIN 10.2 g/dL (12-16); IMMATURE GRANULOCYTES 2.3 % (0-5); LYMPHOCYTE ABS# 1.18 10x3/uL (1.18-3.74); MCH 33.6 pg (26.0-34.0); MCV 98.7 fL (80.0-100.0); MONOCYTES 4.2 % (2-11); NEUTROPHILS 87.3 % (40-80); PLATELET COUNT 85 10x3/uL (130-400); RBC 3.04 10x6/uL (4.00-5.40); RDW 24.5 % (11.5-14.5); WBC 19.7 10x3/uL (4.8-10.8)
[2020-07-16 06:54] LABS: ALBUMIN 2.1 g/dL (3.4-5.0); ANION GAP 14.8 mmol/L (8-16); BILIRUBIN - TOTAL 3.17 mg/dL (0.2-1.3); CREATININE - SERUM 0.9 mg/dL (0.6-1.3); POTASSIUM - SERUM 3.8 mmol/L (3.5-5.1); PROTEIN - SERUM 5.1 g/dL (6.4-8.2)
--- NOTE | 2020-07-16 07:30 | NUR ---
REC'D IN BED AWAKE AND ALERT. RESP EVEN AND UNLABORED WITH NO DISTRESS NOTED CAN EXPRESS NEEDS AND WANTS. NO C/O NOTED OR VOICED. ASSESSMENT COMPLETED AT THIS TIME. C/L IN REACH AT BEDSIDE.
--- NOTE | 2020-07-16 07:30 | NUR ---
REC'D SITTING UPON IN CHAIR AWAKE AND ALERT. RESP EVEN AND UNLABORED WITH NO DISTRESS NOTED. CAN EXPRESS NEEDS AND WANTS. NO C/O NOTED OR VOICED. ASSESSMENT COMPLETED. BLE NOTED TO BE SWOLLEN EDUCATED PT ON THE IMPORTANCE OF KEEPING LEGS ELEVATED WHEN UP. C/L IN REACH AT BEDSIDE.
[2020-07-16 08:14] VITALS: BP 108/62
--- NOTE | 2020-07-16 08:19 | NUR ---
OFF FLOOR AT THIS TIME TO IR SUITE FOR PROCEDURE. STABLE CONDITION UPON DEPARTURE.
--- NOTE | 2020-07-16 09:16 | NUR ---
RETURN BACK TO FLOOR AT THIS TIME FOR IR FOR PROCEDURE. DRESSING CLEAN DRY AND INTACT LEFT LOWER BACK.
[2020-07-16 11:20] LABS: PLATELET ESTIMATE DECREASED
[2020-07-16 11:21] LABS: ANISOCYTOSIS OCC; ROULEAUX OCC
[2020-07-16 12:19] VITALS: BP 111/78
--- NOTE | 2020-07-16 15:04 | NUR ---
OT NOTE: PT OUT FOR PROCEDURE IN AM.. REFUSED TMT IN PM...PT HAD JUST PREVIOUSLY WORKED WITH PHYS THERAPY. LAZARO FRAGOSO, OTR/L
[2020-07-16 17:05] VITALS: BP 104/61
[2020-07-16 20:00] VITALS: BP 107/62
--- NOTE | 2020-07-17 02:45 | NUR ---
PT WAS SITTING UP IN THE BED AT THE ARRIVAL OF ASSESSMENT. PT HAD NO COMPLAINTS OF PAIN. PT STILL HAS SOME PITTING EDEMA TO LOWER BILATERAL LEGS. CALL LIGHT IN REACH. BED IN LOWEST POSITION.
[2020-07-17 04:00] VITALS: BP 110/63
[2020-07-17 06:03] LABS: BASOPHILS 0.1 % (0-2); EOSINOPHILS 0.1 % (0-7); HEMATOCRIT 25.5 % (36.0-48.0); HEMOGLOBIN 8.6 g/dL (12-16); IMMATURE GRANULOCYTES 1.2 % (0-5); LYMPHOCYTE ABS# 0.95 10x3/uL (1.18-3.74); LYMPHOCYTES 4.8 % (15-50); MCH 33.3 pg (26.0-34.0); MCHC 33.7 g/dL (31.0-37.0); MCV 98.8 fL (80.0-100.0); MEAN PLATELET VOLUME 9.9 fL (7.4-10.4); MONOCYTES 3.9 % (2-11); NEUTROPHIL ABS# 17.72 10x3/uL (1.56-6.13); NEUTROPHILS 89.9 % (40-80); PLATELET COUNT 80 10x3/uL (130-400); RBC 2.58 10x6/uL (4.00-5.40); RDW 24.4 % (11.5-14.5); WBC 19.7 10x3/uL (4.8-10.8)
[2020-07-17 06:38] LABS: ALBUMIN 1.8 g/dL (3.4-5.0); ALKALINE PHOSPHATASE 207 U/L (30-120); BILIRUBIN - TOTAL 2.57 mg/dL (0.2-1.3); CALC OSMOLALITY 272 mosm/kg (275-300); CALCIUM 7.6 mg/dL (8.5-10.1); CARBON DIOXIDE 17.8 mmol/L (21.0-32.0); CHLORIDE - SERUM 105 mmol/L (98-107); CREATININE - SERUM 0.8 mg/dL (0.6-1.3); GLUCOSE 104 mg/dL (74-106); POTASSIUM - SERUM 3.5 mmol/L (3.5-5.1); PROTEIN - SERUM 4.8 g/dL (6.4-8.2); SODIUM 135 mmol/L (136-145); UREA NITROGEN 22 mg/dL (7-18); eGFR NON AFRICAN AMERICAN 83 mL/min (90-120)
[2020-07-17 06:41] LABS: ALT (SGPT) 34 U/L (10-68)
[2020-07-17 08:14] VITALS: BP 109/64
--- NOTE | 2020-07-17 12:01 | MORECARE ---
CASE MANAGEMENT DISCHARGE SUMMARY PATIENT: LUANNE HANEY UNIT: [id number] ADM DATE: 07/08/20 AGE: 40 : 78 SEX: F [facility] AUTHOR: NASH LAFLEUR PHYSICIAN: REFERRING PHYSICIAN: MAGDI HAYDEN MD DATE OF SERVICE: 07/17/20 Case Management Discharge Planning Summary DCP REVIEW SUMMARY ANTICIPATED D/C DATE: EXPECTED LOS : CASE STATUS: DCP Initiated INITIAL REVIEW: 07/15/2020 INITIAL REVIEWER: Kelly Mcgrath FINAL DISCHARGE DISPOSITION: : FINAL REVIEWER: FINAL REVIEW DATE: DCP Focus Questions & Answers DCP REV -DCP Review Added on: 07/15/20 4:27 pm QUESTION: ANSWER DCP Screen High Risk Factors: : None Walking limitation: Patient stated self rated walking limitation present? : No Age: : 16 - 42 Prior living environment: : Lives with others Disability ranking: : Grade 1: No significant disability DCP Evaluation Patient's ability to cope with chronic illness : d. No chronic illness Mental health screen: : No mental health history Would patient like to participate in any Care Coordination programs (if applicable): : Not applicable Patient's current cognitive status: : Alert Functional screen assessment: : Basic needs can adequately be met by self Patient with capacity for self-care or can be cared for in same environment as prior to hospitalization? : Yes DCP Re-evaluation Would patient like to participate in any Care Coordination programs (if applicable): : Not applicable PROVIDER NETWORKING REVIEW DATE: 07/16/2020 SERVICE TYPE: Home Health Care REVIEWER: Kelly Mcgrath PROVIDER: FINAL PROVIDER? : FINAL DATE/TIME: CT PATIENT: LUANNE HANEY ENCOUNTER: [id number] MEDICAL RECORD#: [id number] ADMISSION DATE: 07/08/2020 DISCHARGE DATE: ATTENDING MD: MAGDI CHAIREZ : AGE: 40 MARITAL STATUS: M DC PLAN ID: [id number] FACILITY: [facility] PRINTED ON: 07/17/20 12:00 CT All edits/amendments must be made on the electronic document DICTATION DATE: 07/17/20 1200 STRAP MAKING MACHINE OPERATOR: DM 07/17/20 1200 RPT#: [id number] DC DATE: STATUS: ADM IN [facility] [address] [place] [address] END OF REPORT
[2020-07-17 12:24] VITALS: BP 106/64
--- NOTE | 2020-07-17 14:59 | NUR ---
PT STATES NAUSEA IS NOT LIKE IT WAS THIS MORNING WHEN SHE VOMITED. STATES SHE DOESN'T WANT ANYMORE MEDICINE UNLESS SHE HAS TO. CL IN REACH. IV TUBING CHANGED. WCTM
--- NOTE | 2020-07-17 15:44 | NUR ---
OT NOTE: PT WITH INCREASED LE EDEMA; BED MOB WITH CGA; TRANSFERS WITH MIN ASSIST TO TOILET; DRESSING WITH MIN/SBA LAZARO FRAGOSO, OTR/L [phone]
--- NOTE | 2020-07-17 15:55 | NUR ---
PATIENT MIN ASST TO GET UP TO BEDSIDE AND TO STAND. PATIENT MIN ASST TO WALK AROUND IN ROOM 40 FEET HOLDING ON TO IV POLE.
[2020-07-17 16:52] VITALS: Ht 160 cm; Wt 63.1 kg
--- NOTE | 2020-07-17 17:18 | NUR ---
OT NOTE: PT COMPLETED ADL MOB WITH CGA. PT COMPLETED BED MOB TASKS WITH MIN A. PT COMPLETED SITTING BALANCE AT EOB WITH SBA. PT REQUIRED TOTAL A FOR NESLON SOCK. [phone] THANK YOU,DOT FERRERA
[2020-07-17 18:08] LABS: ADAMTS13 ACTIVITY 47.6 % (>66.8)
[2020-07-17 18:46] VITALS: BP 96/56
[2020-07-17 20:00] VITALS: BP 103/68
[2020-07-18] VITALS: BP 111/65
[2020-07-18 04:00] VITALS: BP 119/76
--- NOTE | 2020-07-18 04:24 | NUR ---
I have reviewed this patient and I concur with the Shift Assessment completed by the Licensed Practical Nurse today this shift.
[2020-07-18 06:10] LABS: BASOPHILS 0.1 % (0-2); EOSINOPHILS 0 % (0-7); HEMATOCRIT 27.4 % (36.0-48.0); HEMOGLOBIN 9.2 g/dL (12-16); IMMATURE GRANULOCYTES 0.8 % (0-5); LYMPHOCYTE ABS# 0.89 10x3/uL (1.18-3.74); LYMPHOCYTES 4.7 % (15-50); MCH 32.9 pg (26.0-34.0); MCHC 33.6 g/dL (31.0-37.0); MCV 97.9 fL (80.0-100.0); MEAN PLATELET VOLUME 10.1 fL (7.4-10.4); MONOCYTES 3.7 % (2-11); NEUTROPHIL ABS# 17.08 10x3/uL (1.56-6.13); NEUTROPHILS 90.7 % (40-80); RDW 23.9 % (11.5-14.5); WBC 18.8 10x3/uL (4.8-10.8)
[2020-07-18 06:24] LABS: CALCIUM 7.6 mg/dL (8.5-10.1); CARBON DIOXIDE 20.6 mmol/L (21.0-32.0); CREATININE - SERUM 0.9 mg/dL (0.6-1.3); POTASSIUM - SERUM 3.6 mmol/L (3.5-5.1)
[2020-07-18 06:25] LABS: PLATELET COUNT 102 10x3/uL (130-400)
--- NOTE | 2020-07-18 09:00 | NUR ---
ALERT AND ORIENTED WITH ABDOMEN SOFT WITH BOWEL SOUNDS NOTED X4. TELEMETRY INTACT WITH TRACE EDEMA NOTED TO BLE. STATES APPETITE IS IMPROVING AND DISCUSSED IMPROVED EATING WITH IMPROVE ALBUMIN LEVEL AND DECREASE SWELLING WELL AND VERBALIZED UNDERSTANDING. INCENTIVE SPIROMETRY DONE WITH 2000 REACHED ON DEVICE. REFUSES SCD'S AT THIS TIME. ENCOURAGED TO USE CALL LIGHT FOR ASSSIT.
[2020-07-18 09:23] VITALS: BP 116/64
[2020-07-18 12:31] VITALS: BP 122/76
--- NOTE | 2020-07-18 14:11 | NUR ---
Nutrition follow-up: Diet order: regular Pt reports appetite is improving slowly; still with some nausea labs reviewed Wt: 139# LE edema much better Still with multiple BMs recorded Will continue to provide food choices and honor food preferences Will offer nutritional suppelments. RDN follow-up: 07/23/20
--- NOTE | 2020-07-18 15:17 | NUR ---
PATIENT SITTING UP IN CHAIR WITH EYES CLOSED WITH RESP EVEN AND UNLABORED.
--- NOTE | 2020-07-18 15:55 | NUR ---
OT NOTE: PT COMPLETED ADL MOB WITH ASSISTANT PROFESSOR OF THEATER. PT COMPLETED BED MOB WITH SBA. PT COMPLETED NELSON SOCKS WITH SETUP. PT COMPLETED FACE HYGIENE WITH SETUP. [phone] THANK YOU,DOT FERRERA
[2020-07-18 16:49] VITALS: BP 117/58
[2020-07-18 20:33] VITALS: BP 111/63
--- NOTE | 2020-07-19 03:00 | NUR ---
I have reviewed this patient and I concur with the Shift Assessment completed by the Licensed Practical Nurse today this shift.
[2020-07-19 05:47] VITALS: BP 115/74
[2020-07-19 09:00] VITALS: BP 111/71
[2020-07-19] MEDS ORDERED: QUESTRAN PACKET PO (11:00)
[2020-07-19] MEDS ORDERED: FLORAJEN3 CAPS460 MG PO (11:01)
[2020-07-19] MEDS ORDERED: ALDACTONE25 MG PO (11:01)
[2020-07-19] MEDS ORDERED: PREDNISONE20 MG PO (11:02)
[2020-07-19] MEDS ORDERED: FUROSEMIDE40 MG PO (11:03)
[2020-07-19 13:29] VITALS: BP 121/76
--- NOTE | 2020-07-19 14:30 | NUR ---
IV DISCONTINUED AND VERBALIZED UNDERSTANDING OF DISCHARGE INSTRUCTIONS. STABLE AT TIME OF DISCHARGE
--- NOTE | 2020-07-20 20:51 | MORECARE ---
CASE MANAGEMENT DISCHARGE SUMMARY PATIENT: LUANNE HANEY UNIT: [id number] ADM DATE: 07/08/20 AGE: 40 : 78 SEX: F ROOM/BED: D.2236 AUTHOR: MIQUELDOC PHYSICIAN: REFERRING PHYSICIAN: MAGDI HAYDEN MD DATE OF SERVICE: 07/20/20 Case Management Discharge Planning Summary COMMENTS ENTERED DATE: 07/20/20 20:42 CT COMMENT TYPE: Discharge Planning REVIEWER: Jose Medina NO NEEDS. CM met with patient to complete DC plan and to evaluate needs. Patient lives independently with family. Patient stated that she uses [facility] and has no PCP. CM gave patient information on [facility] in [place]. Patient denied using DME. At discharge, the patient plans to return home and feels this is a safe discharge. CM discussed availability of home health, rehab services, and medical equipment. Patient declined HHS, SNF, IPR, and DME. Patient voiced no other needs at this time and is satisfied with DC plan. CM will continue to follow and will assist as needed with dc plans/needs. Appended by Jose Medina on 07/20/2020 20:42 CDT: LATE ENTRY FOR 07/19/2020 DCP REVIEW SUMMARY ANTICIPATED D/C DATE: EXPECTED LOS : CASE STATUS: DCP Initiated INITIAL REVIEW: 07/15/2020 INITIAL REVIEWER: Kelly Mcgrath FINAL DISCHARGE DISPOSITION: : FINAL REVIEWER: FINAL REVIEW DATE: DCP Focus Questions & Answers DCP REV -DCP Review Added on: 07/15/20 4:27 pm QUESTION: ANSWER DCP Screen High Risk Factors: : None Walking limitation: Patient stated self rated walking limitation present? : No Age: : 16 - 42 Prior living environment: : Lives with others Disability ranking: : Grade 1: No significant disability DCP Evaluation Patient's ability to cope with chronic illness : d. No chronic illness Mental health screen: : No mental health history Would patient like to participate in any Care Coordination programs (if applicable): : Not applicable Patient's current cognitive status: : Alert Functional screen assessment: : Basic needs can adequately be met by self Patient with capacity for self-care or can be cared for in same environment as prior to hospitalization? : Yes DCP Re-evaluation Would patient like to participate in any Care Coordination programs (if applicable): : Not applicable PROVIDER NETWORKING REVIEW DATE: 07/16/2020 SERVICE TYPE: Home Health Care REVIEWER: Kelly Mcgrath PROVIDER: FINAL PROVIDER? : FINAL DATE/TIME: CT PATIENT: LUANNE HANEY ENCOUNTER: [id number] MEDICAL RECORD#: [id number] ADMISSION DATE: 07/08/2020 DISCHARGE DATE: 07/19/2020 ATTENDING MD: MAGDI CHAIREZ : AGE: 40 MARITAL STATUS: M DC PLAN ID: [id number] FACILITY: [facility] PRINTED ON: 07/20/20 20:51 CT All edits/amendments must be made on the electronic document DICTATION DATE: 07/20/202050 BRAILLE CODER: ALONSO 07/20/202050 RPT#: [id number] DC DATE:07/19/20 STATUS: DIS IN [facility] [address] [place] [address] END OF REPORT
--- NOTE | 2020-07-21 16:30 | MORECARE ---
CASE MANAGEMENT DISCHARGE SUMMARY PATIENT: LUANNE HANEY UNIT: [id number] ADM DATE: 07/08/20 AGE: 40 : 78 SEX: F ROOM/BED: D.2236 AUTHOR: MIQUELDOC PHYSICIAN: REFERRING PHYSICIAN: MAGDI HAYDEN MD DATE OF SERVICE: 07/21/20 Case Management Discharge Planning Summary COMMENTS ENTERED DATE: 07/20/20 20:42 CT COMMENT TYPE: Discharge Planning REVIEWER: Jose Medina NO NEEDS. CM met with patient to complete DC plan and to evaluate needs. Patient lives independently with family. Patient stated that she uses [facility] and has no PCP. CM gave patient information on [facility] in [place]. Patient denied using DME. At discharge, the patient plans to return home and feels this is a safe discharge. CM discussed availability of home health, rehab services, and medical equipment. Patient declined HHS, SNF, IPR, and DME. Patient voiced no other needs at this time and is satisfied with DC plan. CM will continue to follow and will assist as needed with dc plans/needs. Appended by Jose Medina on 07/20/2020 20:42 CDT: LATE ENTRY FOR 07/19/2020 DCP REVIEW SUMMARY ANTICIPATED D/C DATE: EXPECTED LOS : CASE STATUS: DCP Initiated INITIAL REVIEW: 07/15/2020 INITIAL REVIEWER: Kelly Mcgrath FINAL DISCHARGE DISPOSITION: : FINAL REVIEWER: FINAL REVIEW DATE: DCP Focus Questions & Answers DCP REV -DCP Review Added on: 07/15/20 4:27 pm QUESTION: ANSWER DCP Screen High Risk Factors: : None Walking limitation: Patient stated self rated walking limitation present? : No Age: : 16 - 42 Prior living environment: : Lives with others Disability ranking: : Grade 1: No significant disability DCP Evaluation Patient's ability to cope with chronic illness : d. No chronic illness Mental health screen: : No mental health history Would patient like to participate in any Care Coordination programs (if applicable): : Not applicable Patient's current cognitive status: : Alert Functional screen assessment: : Basic needs can adequately be met by self Patient with capacity for self-care or can be cared for in same environment as prior to hospitalization? : Yes DCP Re-evaluation Would patient like to participate in any Care Coordination programs (if applicable): : Not applicable PROVIDER NETWORKING REVIEW DATE: 07/16/2020 SERVICE TYPE: Home Health Care REVIEWER: Kelly Mcgrath PROVIDER: FINAL PROVIDER? : FINAL DATE/TIME: CT PATIENT: LUANNE HANEY ENCOUNTER: [id number] MEDICAL RECORD#: [id number] ADMISSION DATE: 07/08/2020 DISCHARGE DATE: 07/19/2020 ATTENDING MD: MAGDI CHAIREZ : AGE: 40 MARITAL STATUS: M DC PLAN ID: [id number] FACILITY: [facility] PRINTED ON: 07/21/20 16:30 CT All edits/amendments must be made on the electronic document DICTATION DATE: 07/21/20 163 BUSINESS SUPPORT ASSISTANT: ALONSO 07/21/20 163 RPT#: [id number] DC DATE:07/19/20 STATUS: DIS IN [facility] [address] [place] [address] END OF REPORT
== END 2020-07-19 14:35 | disposition home or self-care (01) | DRG 386 ==
LOC: D.ER 14:15 → D.MS 07-08 01:16 → D.ER 07-08 01:34 → D.MS 07-19 14:35
PROVIDERS: Anesthesiology; Family Medicine; General Practice; Internal Medicine Gastroenterology; Internal Medicine Hematology & Oncology; Radiology Diagnostic Radiology; Surgery; ADMIT Family Medicine; ATTEND Family Medicine
PROC: 0DBL8ZX Excision of Transverse Colon, Via Natural or Artificial Opening Endoscopic, Diagnostic (ICD-10-PCS; principal; 2020-07-11 09:00)
PROC: 07DR3ZX Extraction of Iliac Bone Marrow, Percutaneous Approach, Diagnostic (ICD-10-PCS; 2020-07-16)
DX: K50.90 Crohn's disease, unspecified, without complications (principal); K81.0 Acute cholecystitis; N17.9 Acute kidney failure, unspecified; E87.1 Hypo-osmolality and hyponatremia; E87.2 Acidosis; K52.9 Noninfective gastroenteritis and colitis, unspecified; E87.6 Hypokalemia; D64.9 Anemia, unspecified; Z72.0 Tobacco use; K74.60 Unspecified cirrhosis of liver; R60.0 Localized edema

== ENCOUNTER → 2020-08-13 13:08 | Outpatient (CLI) | payer OTHER ==
[~2020-08-13] VITALS: Ht 160 cm; Wt 58.2 kg
[~2020-08-13 13:08] MED LIST changes: +ALDACTONE25 MG PO; +FLORAJEN3 CAPS460 MG PO; +FUROSEMIDE40 MG PO; +PREDNISONE20 MG PO; +QUESTRAN PACKET PO
[2020-08-13 14:19] VITALS: BP 105/50; Ht 160 cm; Wt 58.2 kg
--- NOTE | 2020-08-13 15:11 | NUR ---
1505 AFTER PRE-MEDS GIVEN, 1ST UNIT BLOOD CHECKED AT BEDSIDE AND INIATED AT 50/CC/HR. POST TRANSFUSION INFORMATION SHEET PROVIDED WITH VERBAL INSTRUCTIONS. HAS SPOUSE AT SIDE, ATE 50% REG DIET.
--- NOTE | 2020-08-13 15:21 | NUR ---
1520 DENIES PROBLEMS WITH TRANSFUSION, RATE INCREASED TO 250/CC/HR. SPOUSE AT BEDSIDE.
--- NOTE | 2020-08-13 15:44 | NUR ---
1540 ROOM CHECK, PT. A/A, WATCHING TV, IV SITE PATENT, DENIES PROBLEMS WITH TRANSFUSION.
--- NOTE | 2020-08-13 16:08 | NUR ---
1608 ROOM CHECK, DENIES PROBLEMS, IV SITE PATENT, INFUSION GOING AT A 250/CC/HR RATE. PT'S SPOUSE STATES AND SHE HAS ANOTHER BAG AFTER THAT ONE.I SAID YES.
--- NOTE | 2020-08-13 16:40 | NUR ---
1ST UNIT INFUSED, LINE FLUSHED WITH SALINE. 2ND UNIT CHECKED AT BEDSIDE W THIS NURSE AND ROSI FRANCIS RN INFUSION STARTED AT 50 ML/HR PER INFUSION PUMP AT 50 ML/HR. PT WITHOUT COMPLAINTS, REMAINS AT BEDSIDE
--- NOTE | 2020-08-13 16:53 | NUR ---
1645 WITHOUT COMPLAINT OF AT PRESENT, BLOOD INFUSION INCREASED TO 250 ML/HR. VS STABLE
--- NOTE | 2020-08-13 19:00 | NUR ---
181 INFUSION COMPLETE. FLUSHED WITH SALINE 50 ML. VS REMAIN NSTABLE. PT WITHOUT COMPLAINTS OF. IV REMOVED W CATH INTACT AT 184. PATIENT DISCHARGED W SPOUSE VIA WC AFTER REVIEW OF WRITTEN DISCHARGE INSTRUCTIONS.
== END | disposition home or self-care (01) ==
LOC: D.OPS 13:08 → D.LAB 13:08
PROVIDERS: ATTEND Internal Medicine Hematology & Oncology
DX: D64.9 Anemia, unspecified (principal)

== ENCOUNTER → 2020-10-02 08:13 | Outpatient (CLI) | payer OTHER ==
[2020-08-13 14:19] VITALS: BMI 22.7
[2020-10-02 08:48] LABS: HEMATOCRIT 35.6 % (36.0-48.0); HEMOGLOBIN 11.7 g/dL (12-16); LYMPHOCYTE ABS# 2.65 10x3/uL (1.18-3.74); MCH 31.6 pg (26.0-34.0); MCHC 32.9 g/dL (31.0-37.0); MCV 96.2 fL (80.0-100.0); MEAN PLATELET VOLUME 9.7 fL (7.4-10.4); NEUTROPHIL ABS# 5.87 10x3/uL (1.56-6.13); PLATELET COUNT 269 10x3/uL (130-400); RDW 16.7 % (11.5-14.5); WBC 9.9 10x3/uL (4.8-10.8)
[2020-10-02 08:53] LABS: INR 1.2 (0.85-1.17); PROTIME 14.1 SECONDS (11.6-15.0)
[2020-10-02 08:58] LABS: ALBUMIN 3.6 g/dL (3.4-5.0); ANION GAP 14.1 mmol/L (8-16); BILIRUBIN - TOTAL 0.8 mg/dL (0.2-1.3); CALCIUM 10.8 mg/dL (8.5-10.1); CARBON DIOXIDE 23.2 mmol/L (21.0-32.0); CREATININE - SERUM 0.9 mg/dL (0.6-1.3); POTASSIUM - SERUM 4.3 mmol/L (3.5-5.1); PROTEIN - SERUM 9.8 g/dL (6.4-8.2)
[2020-10-02 09:06] LABS: EOSINOPHILS 1 % (0-7); LYMPHOCYTES 23 % (15-50); MONOCYTES 5 % (2-11); NEUTROPHILS 70 % (40-80); PLATELET ESTIMATE NORMAL; TEAR DROP CELLS OCC
[2020-10-02 09:49] LABS: ERYTHROCYTE SEDIMENTATION RATE 117 mm/hr (0-20)
== END | disposition home or self-care (01) ==
LOC: D.US 08:13
PROVIDERS: ATTEND Internal Medicine Gastroenterology
DX: K70.30 Alcoholic cirrhosis of liver without ascites (principal)